=== PATIENT | female | born 2000 | race Caucasian/White ===

== ENCOUNTER 2020-03-26 15:07 | Outpatient (CLI) | payer BC | END 2020-03-26 15:08 | disposition home or self-care (01) | LOC: LAB 15:07 | PROVIDERS: ATTEND Physician Assistant | DX: R50.9 Fever, unspecified (principal); R53.83 Other fatigue; Z20.828 Contact with and (suspected) exposure to other viral communicable diseases | CPT/HCPCS: 81599 ==